=== PATIENT | male | born 1985 | race Caucasian/White ===

== ENCOUNTER 2019-09-23 23:40 | Observation (INO) ==
[2019-09-23] MEDS ORDERED: SODIUM CHLORIDE 0.9% 1000ML 1,000 ML IV SCH (23:45)
[2019-09-23] MEDS ORDERED: KETOROLAC 30 MG/ML VIAL IV STA (23:58)
[2019-09-24 00:18] LABS: Basophils # (auto) 0.03 K/uL (0-0.2); Basophils % (auto) 0.4 %; Eosinophils % (auto) 1.3 %; Hematocrit (blood only) 42.2 % (42-52); Immature Granulocytes # (auto) 0.01 K/uL (0.00-0.02); Immature Granulocytes % (auto) 0.1 %; Lymphocytes # (auto) 2.22 K/uL (1.2-3.4); Lymphocytes % (auto) 28.8 %; Mean Corpuscular Hemoglobin 30.2 pg (25-34); Mean Corpuscular Hgb Conc 35.5 g/dL (32-36); Mean Corpuscular Volume 85.1 fL (80-100); Mean Platelet Volume 10.6 fL (7.4-10.4); Monocytes # (auto) 0.75 K/uL (0.11-0.59); Monocytes % (auto) 9.7 %; Neutrophils # (auto) 4.59 K/uL (1.4-6.5); Neutrophils % (auto) 59.7 %; Platelet Count 118 K/uL (130-400); RDW Coefficient of Variation 13.5 % (11.5-14.5); RDW Standard Deviation 41.6 fL (36.4-46.3); Red Blood Count 4.96 M/uL (4.7-6.1)
[2019-09-24 00:33] LABS: D Dimer 590 ug/L FEU (0-500)
[2019-09-24 00:36] LABS: Albumin Level 3.2 gm/dl (3.4-5.0); BUN Creatinine Ratio 11.8 (10-20); Calcium 8.5 mg/dl (8.5-10.1); Est GFR (African American) 105.6; Est GFR (Non-African American) 91.1; Potassium 3.5 mmol/L (3.5-5.1)
[2019-09-24] MEDS ORDERED: OPTIRAY 320 125ml IV PRN (00:54)
[2019-09-24 00:57] LABS: Albumin Globulin Ratio 0.8 (0.9-2); Bilirubin,Total 0.8 mg/dl (0.2-1); Globulin 4.1 gm/dl (2.5-4.0); Total Protein 7.3 gm/dl (6.4-8.2); Troponin I 12.8 ng/ml (0-0.045)
[2019-09-24 01:25] LABS: Creatine Kinase MB 31.7 ng/ml (0.5-3.6)
--- NOTE | 2019-09-24 02:39 | History & Physical Report ---
Date of Service September 24, 2019 Assessment & Plan (1) Myopericarditis: 34 yo M PMHx bicuspid aortic valve admitted for myopericarditis, rhabdomyolysis, and thrombocytopenia. Myopericarditis with Troponin 12: Differentials include viral vs. bacterial vs. spirochete, hyperthyroidism. Patient with recent illness, history of tick bites, bicuspid aortic valve. Ehrlichiosis, Anaplasmosis, TSH, Coxsackie B pending. Colchicine 0.6mg PO BID, aspirin 81mg PO BID. TTE AM. NPO except medications. Lipid profile and Hgb A1c with morning labs. Cardiology consult placed. Telemetry for cardiac monitoring. Rhabdomyolysis: Elevated CK to 4000. NSS @150 cc/hr. Thrombocytopenia: Possibly secondary to rhabdomyolysis vs. tick-borne illness. CBC am. Consider d/c aspirin for glucocorticoid if plts further decrease. Workup as above. Elevated LFTs: Possibly secondary to rhabdo vs. tick-borne illness vs. NAFLD. CMP AM. Workup as above. Code Status: FULL CODE FEN/GI: NPO, NSS @150cc/hr DVT ppx: SCDs Dispo: Telemetry for cardiac monitoring, myopericarditis workup, Cardiology consult (2) Rhabdomyolysis: (3) Thrombocytopenia: (4) Elevated LFTs: (5) Bicuspid aortic valve: History of Present Illness Chief Complaint: chest pain, malaise Primary Care Provider: MAY Peterson 34-year-old male with a past medical history significant for a bicuspid aortic valve presented to the ED with 1 day of chest discomfort and pain, 4 days of fever, chills, malaise. Patient's symptoms were with out associated radiation to the jaw or arm, crampy in nature, no associated nausea or vomiting, shortness of breath. Due to having a fever at home was required by his work to have COVID-19 testing, which was negative on Friday. In the ED vitals were stable, initial EKG without ST or T wave changes, no prolonged QT. Baseline lab work showed a thrombocytopenia to 118, d-dimer 590, AST 85 ALT 105, CK 406, troponin 12.8. CTA performed which showed no findings suggestive of PE, pneumothorax, pneumonia, aortic dissection. Small pericardial effusion and mild mediastinal and hilar lymphadenopathy. Received 1 L NSS bolus, Toradol 30 mg IV. Hospitalist service was consulted for admission. On my interview patient describes that the chest pain becomes worst when he is getting ready for bed, and upon further questioning, this occurs when he is lying down in bed. Is relieved with sitting upright. Has been taking [id number] ibuprofen and Tylenol intermittently over the last 4 days for fever and malaise. No GI symptoms such as constipation or diarrhea. No dysuria or hematuria. No headaches or dizziness. No associated shortness of breath, cough, rhinorrhea, loss of taste or smell with this illness. Currently a 2 out of 10 "discomfort", no other symptoms. Reports a personal history of bicuspid aortic valve. Not aware of any family history of CAD or other heart disease. No sick contacts. Social history significant for social alcohol use, no smoking, no illicit drug use. Reports a history of several tick bites, the most recent that he can recall was back in June. 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 See HPI for symptom history Constitutional: no fever, no chills and no malaise Respiratory: no cough, no dyspnea and no wheezing Cardiovascular: + chest pain (described as a discomfort, 2/10); no palpitations and no edema Gastrointestinal: no abdominal pain, no nausea, no vomiting, no constipation and no diarrhea/loose stools Genitourinary: no dysuria and no hematuria Physical Exam Constitutional: WD/WN, vitals as above Eyes: PERRL, conjunctivae normal, anicteric sclerae ENMT: external ear and nose normal, oropharynx normal Neck: normal visual inspection Respiratory: normal respiratory effort, lungs clear to auscultation Cardiovascular: RRR, no murmur, no edema Gastrointestinal (Abdomen): normal bowel sounds, soft, nontender, no hepatosplenomegaly Musculoskeletal: no cyanosis or clubbing, extremities motor strength 5/5 Skin: no rashes, warm and dry Neurologic: AAOx3, normal speech. PERRLA, EOMI, no nystagmus. Normal visual acuity bilaterally. Bilateral UE, LE, and face without sensory or motor deficits. DTRs normal. II- XII intact bilaterally. No pronator drift No tremor. No ataxia. Psychiatric: A+Ox3, euthymic affect Results & Data Results & Data ([facility]) Vital Signs (Past 12 Hours) Vital Signs Temp Pulse Pulse Resp BP BP Pulse Ox 09/24/19 01:30 77 16 111/73 99 09/23/19 23:45 37.0 C 90 16 117/73 97 Code Status & VTE Plan VTE Prophylaxis Plan VTE Prophylaxis will be ordered: Yes Supervising Physician Co-Signing Physician Notes Attending addendum: I have physically seen this patient, have supervised the medical residents activities, and agree with the H&P unless as otherwise noted. Assessment and Plan: Myopericarditis/bicuspid aortic valve- Troponin 12.80 upon admission. The patient will be admitted to telemetry for serial cardiac enzymes, serial EKG's, cardiac rhythm monitoring and a 2-D echocardiogram with Dopplers. Laboratory work-up ordered to assess myocarditis, abnormal LFTs, thrombo cytopenia: Lyme, ehrlichiosis, anaplasmosis, coxsackie B, parvovirus. General virus and bacterial. Start colchicine 0.6 mg p.o. twice daily and ASA 81 mg p.o. twice daily. Consult cardiology. Rhabdomyolysis- CK 406, creatinine 1.06. NSS at 150 mils per hour. Repeat laboratories in a.m. Thrombocytopenia- Platelets 118 upon admission. Send peripheral smear to assess platelets and assess for anaplasmosis Remainder of orders and notations as noted. Resident Activity Tracking Resident Involvement: Resident Care Provided Care Provided: Adult Hospital Medicine (1) Rhabdomyolysis Rhabdomyolysis type: non-traumatic Qualified Code(s): M62.82 - Rhabdomyolysis
[2019-09-24] MEDS ORDERED: DOXYCYCLINE HYCLATE 100 MG in DEXTROSE 5% 100 ML IV SCH (02:45)
[2019-09-24 03:25] LABS: Thyroid Stimulating Hormone 4.29 uIu/ml (0.300-4.500)
[2019-09-24] MEDS ORDERED: POLYETHYLENE (MIRALAX) 17 GM PACK PO PRN (03:42)
[2019-09-24] MEDS ORDERED: ONDANSETRON INJ 2 MG/ML 2 ML VIAL IV PRN (03:42)
[2019-09-24 03:57] LABS: Lyme Ab IgG w/WB Rflx Negative (Negative)
[2019-09-24] MEDS: SODIUM CHLORIDE 0.9% 1000ML 1,000 ML IV SCH ×2 (03:58→12:02)
[2019-09-24 04:13] LABS: Lyme Ab IgM w/WB Rflx Positive (Negative)
--- NOTE | 2019-09-24 06:30 | Emergency Department Note ---
History of Present Illness General Chief complaint: Chest Pain Stated complaint: TIGHTNESS IN CHEST - PAIN IN JAW History of Present Illness Maximum Pain Intensity: 0 This is a 34-year-old male presenting to the emergency department for vague central chest pain for the past 1 to 2 days. The patient states that he has had some recent flulike symptoms. 5 days ago he was feeling very sweaty and feverish. He was running a low-grade fever at that time, and because of his work he had to get tested for COVID-19. The patient was tested on Tuesday 09/19, and had a negative result return on Thursday 09/21. The patient did have some persistent fevers on Friday, Friday, and Friday, however these did resolve with ibuprofen and Tylenol. He states that 1 night ago, Friday into , he had weird chest pain when laying down to sleep. He states that when he went to bed again tonight, he had a return of his symptoms. The patient is usually healthy and does not take medication on a regular basis. He does have a past history of bicuspid aortic valve which is being monitored. He rates his current discomfort a 0/10. When he is having the chest discomfort it will sometimes radiate into his neck. Home Medications Home Medications Medication Instructions Recorded Confirmed Type No Known Home Medications 09/24/19 09/24/19 History Allergies Allergy/AdvReac Type Severity Reaction Status Date / Time No Known Allergies Allergy Unverified 09/24/19 00:33 Past Med/Surg History Medical History Bicuspid aortic valve Social History Preferred Language: Amharic Key Maker Required: No Beliefs That Will Affect Care: None Current Living Situation: Spouse Feels Safe at Home: Yes Safety Concerns: Feels Safe At This Time Smoking Status: Never smoker Hx Alcohol Use: No Hx Substance Use: No Review of Systems A total of 10 systems reviewed and were otherwise negative Physical Exam Vital Signs Vital Signs - 24 hr 09/23/19 23:45 09/24/19 00:10 09/24/19 01:30 Temperature 37.0 C Temperature Source Oral Pulse Rate 90 Pulse Rate [Apical] 77 Respiratory Rate 16 16 Respiratory Effort / Characteristics Non-Labored Spontaneous Respiratory Depth Normal Blood Pressure 117/73 Blood Pressure [Right Arm] 111/73 Blood Pressure Mean 87 Blood Pressure Mean [Right Arm] 85 Pulse Oximetry 97 99 Oxygen Delivery Method Room Air Room Air Sepsis Recent Fever Within 48 Hours Yes Sepsis New/Unexplained Change in Mental Status No Sepsis Action Taken by Nursing No Action Required VITALS: Vitals are noted on the nurse's note and reviewed by myself. Vital signs stable. GENERAL: Well-developed, well-nourished, white male, who is in no acute distress and resting comfortably. Patient is cooperative with the examination. HEAD: Normocephalic atraumatic. EARS: External ear normal. External auditory canals clear, tympanic membranes pearly marie without erythema or effusion bilaterally. EYES: Pupils equal round and reactive to light and accommodation. Conjunctivae without injection, sclerae without icterus. Extraocular movements intact. NOSE: Patent, turbinates without inflammation or discharge. MOUTH: Mucous membranes moist. Tonsils are not enlarged. Pharynx without erythema, blood, or exudate. Uvula midline. Airway patent. NECK: Supple without nuchal rigidity. No lymphadenopathy. No thyromegaly. Cervical spine is nontender. HEART: Regular rate and rhythm without murmurs gallops or rubs. LUNGS: Clear to auscultation bilaterally without wheezes, rales or rhonchi. No retractions or accessory muscle use. ABDOMEN: Positive normal bowel sounds x 4. Soft, nontender, without masses or organomegaly. No guarding or rebound tenderness. MUSCULOSKELETAL: No muscle atrophy, erythema, or edema noted. Full range of motion in all extremities. NEURO: Patient was alert and oriented to person place and time. CN II through XII grossly intact. Course Administered Medications Doxycycline Hyclate 100 mg/ (Dextrose) 110 mls @ 50 mls/hr IV Q12H [facility] Stop: 09/26/19 02:44 Last Admin: 09/24/19 05:40 Dose: 50 mls/hr Documented by: [id number] Sodium Chloride (Nss 1000ml) 1,000 mls @ 150 mls/hr IV .Q6H40M [facility] Stop: 10/24/19 03:41 Last Admin: 09/24/19 03:58 Dose: 150 mls/hr Documented by: [id number] Ioversol (Optiray 320 125ml) 125 ml IV ONCE PRN PRN Reason: Interaction Checking Stop: 09/28/19 00:53 Last Admin: 09/24/19 00:55 Dose: 83 ml Documented by: [id number] Discontinued Medications Sodium Chloride (Nss 1000ml) 1,000 mls @ 999 mls/hr IV .Q1H1M [facility] Stop: 09/24/19 00:45 Last Infusion: 09/24/19 01:35 Dose: 0 mls/hr Documented by: [id number] Admin: 09/24/19 00:34 Dose: 999 mls/hr Documented by: [id number] Ketorolac Tromethamine (Toradol) 30 mg IV NOW STA Stop: 09/23/19 23:59 Last Admin: 09/24/19 00:34 Dose: 30 mg Documented by: [id number] Medical Decision Making Differential Diagnosis Differential diagnosis includes, but is not limited to: Myocardial infarction, dysrhythmia, pericarditis, pneumothorax, aortic aneurysm/dissection, DVT/PE, anxiety, GERD, PUD, electrolyte imbalance, thyroid disorder, pneumonia, bronchitis, pancreatitis, and others Laboratory Data Result diagrams: 09/24/19 00:03 09/24/19 00:03 Lab Results 09/24/19 09/24/19 09/24/19 Range/Units 00:03 00:03 00:03 WBC 7.70 (4.8-10.8) K/uL RBC 4.96 (4.7-6.1) M/uL Hgb 15.0 (14.0-18.0) g/dL Hct 42.2 (42-52) % MCV 85.1 (80-100) fL MCH 30.2 (25-34) pg MCHC 35.5 (32-36) g/dL RDW Std Deviation 41.6 (36.4-46.3) fL RDW Coeff of Justin 13.5 (11.5-14.5) % Plt Count 118 L (130-400) K/uL MPV 10.6 H (7.4-10.4) fL Immature Gran % (Auto) 0.1 % Neut % (Auto) 59.7 % Lymph % (Auto) 28.8 % Rusk % (Auto) 9.7 % Eos % (Auto) 1.3 % Baso % (Auto) 0.4 % Immature Gran # (Auto) 0.01 (0.00-0.02) K/uL Neut # (Auto) 4.59 (1.4-6.5) K/uL Lymph # (Auto) 2.22 (1.2-3.4) K/uL Rusk # (Auto) 0.75 H (0.11-0.59) K/uL Eos # (Auto) 0.10 (0-0.5) K/uL Baso # (Auto) 0.03 (0-0.2) K/uL Absolute Nucleated RBC 0.00 (0-0) K/uL Nucleated RBC % (auto) 0.0 % D-Dimer 590 H* (0-500) ug/L FEU Sodium 140 (136-145) mmol/L Potassium 3.5 (3.5-5.1) mmol/L Chloride 105 (98-107) mmol/L Carbon Dioxide 30 (21-32) mmol/L Anion Gap 5.0 (3-11) BUN 12 (7-18) mg/dl Creatinine 1.06 (0.6-1.4) mg/dl Est Cr Clr Drug Dosing 118.0 ml/min Est GFR ( Amer) 105.6 Est GFR (Non-Af Amer) 91.1 BUN/Creatinine Ratio 11.8 (10-20) Glucose 114 H (70-99) mg/dl Calcium 8.5 (8.5-10.1) mg/dl Total Bilirubin 0.8 (0.2-1) mg/dl AST 85 H (15-37) U/L ALT 105 H (12-78) U/L Alkaline Phosphatase 95 (45-117) U/L Total Creatine Kinase 406 H (39-308) U/L CK-MB (CK-2) 31.7 H (0.5-3.6) ng/ml CK/CKMB % Calc 7.8 H (0-3.0) Troponin I 12.800 H* (0-0.045) ng/ml Total Protein 7.3 (6.4-8.2) gm/dl Albumin 3.2 L (3.4-5.0) gm/dl Globulin 4.1 H (2.5-4.0) gm/dl Albumin/Globulin Ratio 0.8 L (0.9-2) Lipase 86 (73-393) U/L TSH 4.290 (0.300-4.500) uIu/ml Imaging Data Radiologist's Impression: Preliminary Findings Only See Final Report For Complete Findings CTA CHEST: No evidence of PE or aortic dissection. Bilateral atelectatic changes. No pneumothorax or pleural effusion. Small pericardial fluid. Small mediastinal and hilar lymph nodes. ECG Data Attestation: I personally reviewed and interpreted this ECG as follows: Indication: chest pain Additional Comments: EKG #1 24-SEP-2019 00:10:13 Normal sinus @81 bpm Cannot rule out Inferior infarct Abnormal ECG No previous ECGs available EKG #2 24-SEP-2019 01:06:05 Normal sinus rhythm @78 bpm Low voltage QRS Borderline ECG When compared with ECG of 24-SEP-2019 00:10,No significant change was found MDM Narrative Physical exam and history were performed. Nursing notes, EMR, and Medication List were personally reviewed. Patient appears to have atypical chest pain bring him to the ER tonight. He has had some flulike symptoms for the past few days with negative COVID testing this week. IV access was established and labs were obtained. The patient was hydrated with normal saline and given IV Toradol for comfort. EKG was performed without acute ST elevation. The patient's blood work is as above and was reviewed. He does not have a significantly elevated white blood cell count or gross anemia. D-dimer was elev ated at [address] angiogram was performed. Angiogram was reviewed by myself and radiology showing no significant acute process. Patient's electrolytes are without abnormality. His troponin is markedly elevated however, at 12.8. Additionally he does have elevated CK and CK-MB. Second EKG was performed and is unchanged from the first. Urine is without significant findings. TSH shows euthyroid state. An order was placed for continuous cardiac monitoring. The monitor shows a rate of 77 with normal sinus rhythm. The case was discussed with my attending physician, Dr. Castano, who remained involved in care and decision making. Overall the patient does not appear well for discharge home. The patient likely has a myopericarditis, with a etiology to be determined. Additional lab studies were added and the case was discussed with the on-call hospitalist, Dr. Felix. Please see his dictation for further patient course, plan, and disposition. The chart was completed utilizing [employer] Voice Recognition Software. Grammatical errors, random word insertions, pronoun errors, and incomplete sentences are an occasional consequence of this system due to software limitati ons, ambient noise, and hardware issues. Any formal questions or concerns about the content, text, or information contained within the body of this dictation should be directly addressed to the provider for clarification. . Impression & Plan Myopericarditis, Atypical chest pain Discharge Plan Visit Data *Final* Discharge Date/Time: 09/24/19 02:46 Chief Complaint: Chest Pain Stated Complaint: TIGHTNESS IN CHEST - PAIN IN JAW ED Provider: Kenisha Castano ED Midlevel Provider: Dorian Gonzalez Discharge Problem: Myopericarditis, Atypical chest pain Patient Disposition: Admitted As Inpatient Discharge Instructions Interventions: ED Discharge Assessment Last Done: 09/24/19 02:46
[2019-09-24 06:40] LABS: Appearance Urine Clear (Clear); Bilirubin Urine Negative (Negative); Blood Urine Negative (Negative); Color Urine Yellow; Glucose Urine UA Negative (Negative); Ketones Urine Negative (Negative); Leukocyte Esterase Urine Negative (Negative); Nitrite Urine Negative (Negative); Protein Urine Negative (Negative); Specific Gravity Urine > 1.045 (1.000-1.030); Urobilinogen Urine Positive (Negative); pH Urine 6.5 (4.5-7.5)
--- NOTE | 2019-09-24 06:50 | XRay Report ---
XR chest 1V portable CLINICAL HISTORY: Fever, cough COMPARISON STUDY: Chest CT September 24, 2019 at 12:46. FINDINGS: Lung volumes are normal. Mild bibasilar opacities favor atelectasis. There is no pneumothor ax or pleural effusion. Cardiac size is normal. Mediastinal contours are normal. There is no evidence for pulmonary edema. IMPRESSION: 1. No acute findings. 2. Mild bibasilar opacities that favor atelectasis. ACT 112: Negative or not required by law. Electronically signed by: Bayron Saez M.D. 09/24/2019 6:49 AM
[2019-09-24 06:58] LABS: Basophils # (auto) 0.03 K/uL (0-0.2); Basophils % (auto) 0.5 %; Eosinophils # (auto) 0.11 K/uL (0-0.5); Eosinophils % (auto) 1.9 %; Hematocrit (blood only) 39.4 % (42-52); Hemoglobin 13.9 g/dL (14.0-18.0); Immature Granulocytes # (auto) 0.01 K/uL (0.00-0.02); Immature Granulocytes % (auto) 0.2 %; Mean Corpuscular Hemoglobin 30.2 pg (25-34); Mean Corpuscular Hgb Conc 35.3 g/dL (32-36); Mean Corpuscular Volume 85.7 fL (80-100); Mean Platelet Volume 10.6 fL (7.4-10.4); Monocytes # (auto) 0.64 K/uL (0.11-0.59); Monocytes % (auto) 10.9 %; Neutrophils % (auto) 47.5 %; Platelet Count 103 K/uL (130-400); RDW Coefficient of Variation 13.6 % (11.5-14.5); RDW Standard Deviation 42.7 fL (36.4-46.3); White Blood Count 5.89 K/uL (4.8-10.8)
[2019-09-24 07:03] LABS: Estimated Average Glucose 88 mg/dl; Hemoglobin A1C 4.7 % (4.5-5.6)
--- NOTE | 2019-09-24 07:21 | CT Scan Report ---
CT angio chest PE protocol CT DOSE: 544.61 mGy.cm HISTORY: 34 years-old Male with PE r/o. Acute mid back pain TECHNIQUE: Multiple CTA images of the chest were obtained after the intravenous administration of 83 ml Optiray 320. Coronal and sagittal MIPS were obtained from the axial data set and were submitted f or review. All measurements were obtained according to NASCET criteria. A dose lowering technique wa s utilized adhering to the principles of ALARA. COMPARISON: Chest radiograph of same day, CT abdomen and pelvis 03/28/2014 FINDINGS: CTA: Heart is normal in size. Trace pericardial effusion. No thoracic aortic aneurysm or dissection. Paten cy of the imaged great vessels. The pulmonary arterial tree is opacified to level of the subsegmental branches and demonstrates no filling defects to suggest pulmonary thromboembolic disease. CT CHEST: Unremarkable thyroid. No adenopathy. Mildly prominent subcarinal and hilar lymph nodes are likely juanita ctive. There is no pneumothorax or pleural effusion. Groundglass and linear subsegmental consolidativ e bibasilar densities are present suggestive of atelectasis. No overt pulmonary edema or airspace con solidation typical for pneumonia. There are no suspicious pulmonary nodules or masses. Central airway s are patent. No acute process of the imaged upper abdomen. Mild gynecomastia. Soft tissues are otherwise unremarka ble. Bones appear intact. IMPRESSION: No acute intrathoracic abnormality, specifically there is no evidence of pulmonary throm boembolic disease. ACT 112: Negative or not required by law. The above report was generated using voice recognition software. It may contain grammatical, syntax o r spelling errors. Electronically signed by: Juan Alberto Richardson M.D. 09/24/2019 7:20 AM
[2019-09-24 07:23] LABS: BUN Creatinine Ratio 12.5 (10-20); Calcium 8.7 mg/dl (8.5-10.1); Creatinine Clr Calc Pharmacy 129.7 ml/min; Est GFR (African American) 120.6; Potassium 3.9 mmol/L (3.5-5.1)
[2019-09-24 07:25] LABS: Albumin Globulin Ratio 0.9 (0.9-2); Bilirubin,Total 0.6 mg/dl (0.2-1); Globulin 3.3 gm/dl (2.5-4.0); Total Protein 6.3 gm/dl (6.4-8.2)
[2019-09-24] MEDS ORDERED: ASPIRIN 81 MG ECTAB PO SCH (09:00)
[2019-09-24] MEDS ORDERED: COLCHICINE 0.6 MG TAB PO SCH (09:00)
--- NOTE | 2019-09-24 09:44 | XCELERA ---
[id number]
--- NOTE | 2019-09-24 10:14 | Cardiology Consultation ---
Date of Consultation September 24, 2019 Assessment & Plan (1) Myopericarditis: Patient is a 34 year old male with PMHx bicuspid aortic valve and PVCs with concerns for Myopericarditis secondary to lyme/anaplasmosis Myopericarditis -likely secondary to Lyme vs Anaplasmosis -Lyme IGM titer positive, however decreased WBC, thrombocytopenia, and elevated LFTs suggestive of Anaplasmosis -Anaplasmosis titre pending, Peripheral smear pending. -Started on Doxycycline in ED, continue 100mg BID x7-10 days or at least 3 days after last defervescence, whichever is longer. -Can D/C ASA -Can continue Colchicine 0.6mg BID -Echo with EF 55-60% with normal Left ventricular systolic function -Troponin downtrending from 12.8 -> 7.4 -No heart block or bradycardia noted on telemetry or EKG Bicuspid Aortic Valve -Followed by Dr. Silverman in past, patient would like to continue f/u with Dr. Silverman upon d/c -Difficult to visualize on Echo, mild to moderate aortic regurgitation without significant valvular aortic stenosis (2) Atypical chest pain: (3) Bicuspid aortic valve: (4) Thrombocytopenia: (5) Elevated LFTs: Supervising Physician Co-Signing Physician Notes I saw and examined the patient doctor Garima and agree with the documentation noted above. Briefly, the patient developed an infectious syndrome leading up to his admission for symptoms of chest discomfort. His discomfort was precordial in nature and somewhat pleuritic as well. He had extended symptoms of discomfort and elevated biomarkers at the time of admission. At baseline he is an active individual does not have symptoms of cardiac disease or coronary insufficiency. His symptoms appear to have resolved currently. Given his young age, the absence of cardiac symptoms leading up to his admission and the current diagnosis of an infectious process, I do not believe he suffers from an acute coronary syndrome. He does have appear to have myocarditis related to a tick- borne illness lyme versus anaplasmosis. I would agree with the treatment noted above to include colchicine for symptom relief, nonsteroidals as needed and treatment of the underlying infection. Given his normal LV systolic function and chamber dimensions do not believe he requires beta-blockade or prolonged observation. He should follow an exercise restriction for 3 months and not perform strenuous activity. The Specter of endocarditis is raised given his known abnormality of the aortic valve. Does have some mild abnormality of the valve on our echocardiogram to include an element of aortic regurgitation. It is unclear whether this is changed significantly since his last evaluation. At this point I think would be prudent to treat his known infection and simply monitor his exam for changes. No current murmur. Persistent bacteremia, persistent infection, change in symptoms or exam what prompted repeat evaluation for endocarditis. History of Present Illness Reason for Consultation: myopericarditis,troponin 12,hx bicuspid aorticvalv Requesting Physician: Kim Cummings D.O. Attending Physician: Lisa Rodriguez MD History of Present Illness Patient is a 34 year old male with PMHx bicuspid aortic valve and PVCs consulted for concerns of lyme/anaplasmosis related myopericarditis, elevated troponins, and history of bicuspid aortic valve. Patient notes that yesterday afternoon he started having centralized chest pressure that worsened with laying down and movement. He states that he did not become SB or diaphoretic during this time. He notes that for the past 3 days prior to that he had been having fever, chills, fatigue, and over all flu-like illness. He states that his last fever was 09/22/19 measured at 102F and that his fevers broke when the chest pain began. He has been taking OTC ibuprofen and Tylenol over the past few days which has been mildly helping. Denies any known recent tick bites (last in June), but expresses high likelihood of exposure due to hunting, fishing, [place], and recently removing them from his children. He denies any family history of cardiac disease. Denies tobacco use or illicit drug use. His bicuspid aortic valve has been followed by Dr. Silverman in the past, however, he has not had an appointment since 2017 as he has been "all good" since their last appointment. Currently patient still notes some discomfort, but no more pain compared to yesterday. He does not seem to notice much of a difference in terms of the discomfort with sitting forward or laying flat. Denies any SOB. 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 Beliefs That Will Affect Care: None Current Living Situation: Spouse Feels Safe at Home: Yes Smoking Status: Never smoker Hx Alcohol Use: No Hx Substance Use: No Review of Systems Constitutional: no fever, no chills and no fatigue Eyes: no worsening vision Ear, Nose, Mouth, Throat: no dizziness Respiratory: no cough, no chest congestion, no dyspnea and no pain on inspiration Cardiovascular: + chest pain (chest discomfort); no radiating jaw, neck or arm pain, no dyspnea, no dyspnea on exertion and no palpitations Gastrointestinal: no abdominal pain, no nausea, no vomiting, no constipation and no diarrhea/loose stools Genitourinary: no dysuria Physical Exam Constitutional: WD/WN, vitals as above Respiratory: normal respiratory effort, lungs clear to auscultation Cardiovascular: RRR, no murmur, no edema Gastrointestinal (Abdomen): normal bowel sounds, soft, nontender, no hepatosplenomegaly Skin: + rash (3x3cm red circumscribed lesion on R posterior shoulder/back and Low L back) Psychiatric: A+Ox3, euthymic affect Results & Data ([facility]) Vital Signs (Past 12 Hours) Vital Signs Temp Pulse Pulse Resp BP BP Pulse Ox 09/24/19 07:15 36.7 C 67 16 108/69 98 09/24/19 03:44 36.6 C 77 16 118/78 96 09/24/19 02:46 74 18 120/81 96 09/24/19 01:30 77 16 111/73 99 09/23/19 23:45 37.0 C 90 16 117/73 97 PG Care Time/CCT Total # of Minutes Spent Total Time Spent with Patient: Total time spent is greater than 50% in coordination of care (as documented) at patient's floor/unit and/or counseling patient: Coding Level of Care Code 84683 Office/OBS Consult Lvl 4 Diagnoses Myopericarditis I31.9 Atypical chest pain R07.89 Bicuspid aortic valve Q23.1 Thrombocytopenia D69.6 Elevated LFTs R79.89 Resident Activity Tracking Resident Involvement: Resident Care Provided Care Provided: Adult Hospital Medicine
--- NOTE | 2019-09-24 12:02 | Discharge Summary ---
Date of Service September 24, 2019 Admission HPI Per Admitting Provider 34-year-old male with a past medical history significant for a bicuspid aortic valve presented to the ED with 1 day of chest discomfort and pain, 4 days of fever, chills, malaise. Patient's symptoms were with out associated radiation to the jaw or arm, crampy in nature, no associated nausea or vomiting, shortness of breath. Due to having a fever at home was required by his work to have COVID-19 testing, which was negative on Friday. In the ED vitals were stable, initial EKG without ST or T wave changes, no prolonged QT. Baseline lab work showed a thrombocytopenia to 118, d-dimer 590, AST 85 ALT 105, CK 406, troponin 12.8. CTA performed which showed no findings suggestive of PE, pneumothorax, pneumonia, aortic dissection. Small pericardial effusion and mild mediastinal and hilar lymphadenopathy. Received 1 L NSS bolus, Toradol 30 mg IV. Hospitalist service was consulted for admission. On my interview patient describes that the chest pain becomes worst when he is getting ready for bed, and upon further questioning, this occurs when he is lying down in bed. Is relieved with sitting upright. Has been taking [id number] ibuprofen and Tylenol intermittently over the last 4 days for fever and malaise. No GI symptoms such as constipation or diarrhea. No dysuria or hematuria. No headaches or dizziness. No associated shortness of breath, cough, rhinorrhea, loss of taste or smell with this illness. Currently a 2 out of 10 "discomfort", no other symptoms. Reports a personal history of bicuspid aortic valve. Not aware of any family history of CAD or other heart disease. No sick contacts. Social history significant for social alcohol use, no smoking, no illicit drug use. Reports a history of several tick bites, the most recent that he can recall was back in June. Principal Diagnosis Lyme disease, myopericarditis Discharge Exam Constitutional WD/WN, vitals as above Eyes PERRL, conjunctivae normal, anicteric sclerae ENMT external ear and nose normal, oropharynx normal Neck trachea midline, no thyromegaly Respiratory normal respiratory effort, lungs clear to auscultation Cardiovascular RRR, no murmur, no edema Chest (Breasts) Chest: normal inspection of chest Gastrointestinal (Abdomen) normal bowel sounds, soft, nontender, no hepatosplenomegaly Musculoskeletal Extremities: extremities normal to inspection; no cyanosis and no clubbing Skin + lesion (8 cm bull's-eye appearing erythematous lesion on the upper back and lower back) Neurologic moves all extremities and awake; no focal motor deficits Psychiatric A+Ox3, euthymic affect Lymphatic no lymphedema Discharge Data Allergies Allergy/AdvReac Type Severity Reaction Status Date / Time No Known Allergies Allergy Unverified 09/24/19 00:33 Consultations 09/24/19 03:16 ED Decision to Admit Stat 09/24/19 03:42 Consult Cardiology Routine Ordered Studies 09/24/19 00:35 CT angio chest PE protocol Urgent Chest x-ray Echocardiogram Hospital Course (1) Myopericarditis: Patient is a 34 year old male with PMHx bicuspid aortic valve and PVCs with concerns for Myopericarditis secondary to lyme/anaplasmosis Myopericarditis-with classic symptoms of pericarditis, troponin peaked at 12 -likely secondary to Lyme vs Anaplasmosis -Lyme IGM titer positive, however decreased WBC, thrombocytopenia, and elevated LFTs suggestive of Anaplasmosis -Anaplasmosis titre pending, Peripheral smear pending. -Started on Doxycycline in ED, continue 100mg BID for 4 weeks to cover for Lyme disease as well as anaplasmosis while confirmatory test are pending -Can continue Colchicine 0.6mg BID for at least 2 weeks and follow-up with cardiology -Echo with EF 55-60% with normal Left ventricular systolic function -Troponin downtrending from 12.8 -> 7.4 -No heart block or bradycardia noted on telemetry or EKG Much improved and was stable for discharge Gave restrictions for no heavy exertion until pericarditis is resolved Bicuspid Aortic Valve -Followed by Dr. Silverman in past, patient would like to continue f/u with Dr. Olena croft upon d/c -Difficult to visualize on Echo, mild to moderate aortic regurgitation without significant valvular aortic stenosis (2) Lyme disease: Lyme titer positive Western blot pending -Treated with doxycycline as above (3) Atypical chest pain: Secondary to pericarditis as above (4) Bicuspid aortic valve: As noted above (5) Thrombocytopenia: Follow CBC as an outpatient Platelets down to 103 on the day of discharge (6) Elevated LFTs: Possibly secondary to anaplasmosis -Follow LFTs as an outpatient Total Time Total Time Spent Total Time Spent (In Minutes): Greater than 30 minutes Total Time Includes: Examination of the Patient, Discharge Planning, Medication Reconciliation and Communication With Other Providers (Cardiology) Discharge Plan Discharge Items Patient Disposition: Home - Self-Care Reason For Visit: MYOPERICARDITIS Discharge Diagnosis: Lyme disease, 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, Myopericarditis Condition on Discharge: Good Activity: As commented below Lifting: No more than 10 pounds Bathing: No limitations Exercise/Sports: Gradually increase as tolerated Exercise Comment: No strenuous exertion until chest pressure resolved and seen by Cardiology Driving/Machine Use: No limitations Non-emergency contact: Primary Care Provider and Fish Cutter Call non-emergency contact if: you have any medication questions, your symptoms worsen, your pain is not controlled, your pain is worsening, your pain is unusual for you, your pain is concerning for you, you have a fever and your temperature is above 101 Follow-up/Referrals: Rich Silverman DO [Physician] - 10/11/19 10:10 am (Please follow up with Dr. Silverman within 1-2 weeks.) Jeri Kaufman CRNP [Primary Care Provider] - 10/07/19 3:50 pm (Please follow up within 1-2 weeks.) Diet: Regular Ambulatory Orders: Complete Blood Count with Diff (Routine) Timeframe: 3 Days Location: Determined by Patient Ordered By: Lisa Rodriguez Comprehensive Metabolic Panel (Routine) Timeframe: 3 Days Location: Determined by Patient Ordered By: Lisa Rodriguez Addtl Attending Provider Instructions: You were admitted with fevers and chest pain. You were found to have Lyme disease as well as suspected Anaplasmosis (another tick-borne illness). You also were diagnosed with myopericarditis (inflammation of the heart). Please finish out a course of doxycycline for your Lyme disease and Anaplasmosis x 4 weeks. The confirmatory testing for the Anaplasmosis won't likely be available for one more week and your PCP can follow up on these results. Please take colchicine 0.6mg twice daily x 2 weeks for the inflammation of the heart. You can also take ibuprofen 800mg every 8 hours as needed for chest pain if the colchicine is not taking all of it away. Follow up with Dr. Silverman of Cardiology within 1-2 weeks and avoid strenuous exertion until that time. You had low platelets and elevated liver enzymes likely from the Anaplasmosis. Please have repeat blood work drawn on Friday to ensure these abnormalities are improving. If you develop worsening chest pain, shortness of breath, lightheadedness or dizziness or pass out, please return to the hospital immediately. Pending Studies at Discharge: Yes Studies:: Anaplasmosis and Ehrlichisosis titer, Lyme disease Western Blot, Susanne-France virus titer (Perkins), Coxsackie virus antibody, and Blood cultures Stand-Alone Forms: My [facility] Medications and DC Order Prescriptions: New colchicine [Colcrys] 0.6 mg Tablet 0.6 mg PO BID Qty: 28 RF: 0 doxycycline hyclate 100 mg tablet 100 mg PO BID 28 Days Qty: 56 RF: 0 ibuprofen 800 mg tablet 800 mg PO Q8H PRN (Reason: chest pain) Qty: 30 RF: 0 No Action No Known Home Medications RF: 0 Discharge Orders: Discharge Order (Routine); Ordered 09/24/19 Ordered By: Lisa Rodriguez Admission Data Admit Date/Time: 09/24/19 02:27 Attending Provider: Lisa Rodriguez Admit Provider: Kim Cummings Primary Care Provider: Jeri Kaufman Other Providers: Jose Moore Other Interventions: Discharge Summary Assessment (RN) Last Done: 09/24/19 11:38 DC Date/Time DO NOT enter until pt leaves facility: 09/24/19 12:38 Coding Level of Care Code 41675 OBS Care - Discharge Diagnoses Myopericarditis I31.9 Lyme disease A69.20 Atypical chest pain R07.89 Bicuspid aortic valve Q23.1 Thrombocytopenia D69.6 Elevated LFTs R79.89
--- NOTE | 2019-09-24 19:15 | Electrocardiogram Report ---
Test Reason : Blood Pressure : / mmHG Vent. Rate : 081 BPM Atrial Rate : 081 BPM P-R Int : 140 ms QRS Dur : 106 ms QT Int : 370 ms P-R-T Axes : 052 001 039 degrees QTc Int : 429 ms Normal sinus rhythm No previous ECGs available Confirmed by Amaury Moore ([id number]) on 09/24/2019 7:15:48 PM Referred By: REFERRED SELF Confirmed By:Dwayne Moore
--- NOTE | 2019-09-24 19:16 | Electrocardiogram Report ---
Test Reason : Blood Pressure : / mmHG Vent. Rate : 078 BPM Atrial Rate : 078 BPM P-R Int : 146 ms QRS Dur : 104 ms QT Int : 382 ms P-R-T Axes : 044 005 040 degrees QTc Int : 435 ms Normal sinus rhythm Low voltage QRS Borderline ECG When compared with ECG of 24-SEP-2019 00:10, (unconfirmed) No significant change was found Confirmed by Amaury Moore ([id number]) on 09/24/2019 7:15:53 PM Referred By: REFERRED SELF Confirmed By:Dwayne Moore
--- NOTE | 2019-09-25 05:34 | Billing Data ---
Date of Service September 25, 2019 Coding Level of Care Code 15413 OBS Care - Level 3
--- NOTE | 2019-09-25 05:34 | Billing Data ---
Date of Service September 25, 2019 Coding Level of Care Code 17992 Initial Inpt Care Lvl 3
[2019-09-29 03:01] LABS: Coxsackie B4 <1:8 (<1:8); Coxsackie B5 <1:8 (<1:8); EBV Nuclear Ag Antibody >600.00 U/mL; EBV Virus Capsid Ag IgG Ab >750.00 U/mL; Ehrlichia chaff IgG Ab <1:64 (<1:64); Ehrlichia chaff IgM Ab <1:20 (<1:20); Epstein Barr Virus Early Ag Ab <9.00 U/mL
[2019-09-30 09:19] LABS: 18KDIGG Band NON-REACTIVE; 23KDIGG Band NON-REACTIVE; 23KDIGM Band REACTIVE; 28KDIGG Band NON-REACTIVE; 30KDIGG Band NON-REACTIVE; 39KDIGG Band NON-REACTIVE; 39KDIGM Band REACTIVE; 41KDIGG Band NON-REACTIVE; 41KDIGM Band NON-REACTIVE; 45KDIGG Band NON-REACTIVE; 58KDIGG Band NON-REACTIVE; 66KDIGG Band NON-REACTIVE; 93KDIGG Band NON-REACTIVE; Lyme Antibodies, WB IgG NEGATIVE (NEGATIVE); Lyme Antibodies, WB IgM POSITIVE (NEGATIVE)
== END 2019-09-24 12:38 | disposition home or self-care (01) ==
LOC: ED 23:40 → 2S 09-24 02:27 → SUATTDRO 09-24 02:27 → INTOOBSV 09-24 02:27 → 2S 09-24 02:46